=== PATIENT | male | born 1980 | race Caucasian/White ===

== ENCOUNTER 2017-06-19 10:30 | Emergency (ER) | payer OTHER ==
[~2017-06-19] VITALS: Ht 193 cm; Wt 95.3 kg
[~2017-06-19 10:30] MED LIST: BACTRIM DS TAB1 EACH PO; BACTROBAN22 GM TP
[2017-06-19] MEDS ORDERED: ANXIETY MEDICATION (10:47)
[2017-06-19] MEDS ORDERED: TRAMADOL 50 MG50 MG PO (12:05)
[2017-06-19] MEDS ORDERED: IBUPROFEN 800800 M1 PO (12:05)
[2017-06-19] MEDS ORDERED: KEFLEX500 M1 PO (12:46)
[2017-06-19 13:14] VITALS: BP 134/78
== END 2017-06-19 13:14 | disposition home or self-care (01) ==
LOC: M.ERS 10:30
DX: S61.422A Laceration with foreign body of left hand, initial encounter (principal); F32.9 Major depressive disorder, single episode, unspecified; F41.9 Anxiety disorder, unspecified; F17.210 Nicotine dependence, cigarettes, uncomplicated; F10.99 Alcohol use, unspecified with unspecified alcohol-induced disorder; F12.10 Cannabis abuse, uncomplicated; W26.8XXA Contact with other sharp object(s), not elsewhere classified, initial encounter; Y93.89 Activity, other specified; Y92.89 Other specified places as the place of occurrence of the external cause; Y99.8 Other external cause status